=== PATIENT | male | born 2000 | race Caucasian/White ===

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

== ENCOUNTER 2018-02-13 14:11 | Emergency (ER) | payer OTHER ==
[~2018-02-13] VITALS: Ht 188 cm; Wt 140.0 kg
[~2018-02-13 14:11] MED LIST changes: +MELO-83 PO; -MELO15TA4 PO
[2018-02-13 14:29] VITALS: TEMP 36.9; Ht 188 cm; Wt 140.0 kg
--- NOTE | 2018-02-13 15:54 | DIAGNOSTIC IMAGING REPORT ---
L KNEE 3 VIEWS CLINICAL HISTORY: Left knee pain. COMPARISON: None FINDINGS: Alignment of the left knee is anatomic. There is no acute fracture. There is a suspected small left knee joint effusion. Irregularity/fragmentation of the tibial tubercle with a few calcific densities projecting over the distal patellar tendon is noted. IMPRESSION: 1. No acute fracture. 2. Small left knee joint effusion. 3. Irregularity/fragmentation of the tibial tubercle with a few calcific densities projecting over the distal patellar tendon. 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 Electronically signed by: Jeramy Manzano M.D. 02/13/2018 3:52 PM Dictated Date/Time: 02/13/2018 3:50 PM
--- NOTE | 2018-02-13 17:01 | DIAGNOSTIC IMAGING REPORT ---
L LOWER EXTREMITY WITHOUT CLINICAL HISTORY: Left knee pain status post fall 2 weeks ago. COMPARISON STUDY: Left knee radiographs performed earlier today. TECHNIQUE: Axial images of the left knee were obtained without IV contrast. Sagittal and coronal reconstructions were viewed. FINDINGS: No acute fracture or joint effusion of the left knee is noted. There is moderate lateral patellar tilt. There is slight irregularity of the inferior medial cortex of the patella without convincing evidence for recent lateral patellar dislocation by CT. Fragmentation of the tibial tubercle with several calcifications in the distal patellar tendon are noted. These are corticated and chronic. No suspicious osseous lesion is present. Joint spaces are preserved. There may be minimal osteophytosis within the patellofemoral compartment. Intrinsic ligaments of the left knee and menisci are suboptimally assessed by CT. IMPRESSION: 1. No acute fracture or joint effusion of the left knee. 2. Moderate lateral patellar tilt without convincing CT evidence for recent lateral patellar subluxation. 3. 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 Electronically signed by: Jeramy Manzano M.D. 02/13/2018 5:00 PM Dictated Date/Time: 02/13/2018 4:33 PM
--- NOTE | 2018-02-13 17:09 | EMERGENCY ROOM VISIT NOTE ---
History First contact with patient: 14:34 Chief Complaint: KNEEPAIN Stated Complaint: LEFT KNEE PAIN History of Present Illness The patient is a 18 year old male who presents to the Emergency Room with complaints of left knee pain after falling in a freezer at work approximately 1 week ago. The patient reports that his pain is progressively worsening. He denies any instability, clicking or locking of the knee. He denies any pain extending into the thigh or distal leg region. He denies any paresthesias or numbness of the left lower extremity, and rates his discomfort an 8 out of 10 with weightbearing. Patient reports that he has had a prior history of joint problems, and his PCP has prescribed meloxicam for his pain. The patient reports that the meloxicam is not helping with his discomfort. Review of Systems 10 system review was performed and was negative except for pertinent positives and negatives as indicated in history of present illness Past Medical/Surgical History Medical Problems: (1) ADHD (attention deficit hyperactivity disorder) (2) No known active medical problems Family History Cancer Diabetes mellitus Heart disease Social History Smoking Status: Current Every Day Smoker Alcohol Use: none Drug Use: none Marital Status: single Housing Status: lives with family Occupation Status: student Current/Historical Medications Scheduled Meloxicam (Meloxicam), 15 MG PO DAILY Physical Exam Vital Signs Date Time Temp Pulse Resp B/P (MAP) Pulse Ox O2 Delivery O2 Flow Rate FiO2 02/13/18 14:29 36.9 76 20 124/83 99 Room Air Physical Exam CONSTITUTIONAL: Healthy and well nourished. Alert and oriented X 3 with positive affect. HEENT: Normocephalic, atraumatic. Pupils equal, round and reactive. NECK: Full active range of motion without discomfort. MUSCULOSKELETAL: Examination of the left knee does not show any obvious soft tissue edema, ecchymosis, erythema, abrasions or lacerations. The patient is tender over the tibial tubercle and patellar tendon region. He is able to extend the knee against resistance. Patient is also able to straight leg raise. Collateral ligaments are intact. Negative anterior drawer, negative posterior draw. No obvious joint effusion noted. Pedal pulses are intact. INTEGUMENTARY: No rash or other significant dermatologic conditions noted. NEUROLOGIC: Left lower extremity is sensory intact. Medical Decision & Procedures ER Provider Diagnostic Interpretation: My interpretation of left knee x-rays shows possible fragmentation at the tibial tubercle. No obvious extension into the proximal tibia or tibial plateau is noted. 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 Radiologist report is as follows: L KNEE 3 VIEWS CLINICAL HISTORY: Left knee pain. COMPARISON: None FINDINGS: Alignment of the left knee is anatomic. There is no acute fracture. There is a suspected small left knee joint effusion. Irregularity/fragmentation of the tibial tubercle with a few calcific densities projecting over the distal patellar tendon is noted. IMPRESSION: 1. No acute fracture. 2. Small left knee joint effusion. 3. Irregularity/fragmentation of the tibial tubercle with a few calcific densities projecting over the distal patellar tendon. This is chronic and may reflect the sequela of [place] Schlatter disease. Noncontrast CT of the knee does not show any fracture extending into the proximal tibia. Radiologist report is as follows: L LOWER EXTREMITY WITHOUT CLINICAL HISTORY: Left knee pain status post fall 2 weeks ago. COMPARISON STUDY: Left knee radiographs performed earlier today. TECHNIQUE: Axial images of the left knee were obtained without IV contrast. Sagittal and coronal reconstructions were viewed. FINDINGS: No acute fracture or joint effusion of the left knee is noted. There is moderate lateral patellar tilt. There is slight irregularity of the inferior medial cortex of the patella without convincing evidence for recent lateral patellar dislocation by CT. Fragmentation of the tibial tubercle with several calcifications in the distal patellar tendon are noted. These are corticated and chronic. No suspicious osseous lesion is present. Joint spaces are preserved. There may be minimal osteophytosis within the patellofemoral compartment. Intrinsic ligaments of the left knee and menisci are suboptimally assessed by CT. IMPRESSION: 1. No acute fracture or joint effusion of the left knee. 2. Moderate lateral patellar tilt without convincing CT evidence for recent lateral patellar subluxation. 3. 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 ED Course Patient history and physical exam were performed. Nurse's notes were reviewed. Vital signs were reviewed and were normal. 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 Because the patient has not had any improvement over the past 2 weeks since his injury, I elected to perform a CT of the knee which did not show any proximal tibia fracture. A knee immobilizer and crutches were applied. The patient was encouraged to intermittently apply ice and elevate the knee for swelling and pain. Alternate ibuprofen and Tylenol as needed for pain. The patient was instructed to discuss this injury with his employer as the patient reports that he fell at work. He does not think that any paperwork was filed. If this is not considered as a Worker's Compensation injury, the patient was instructed to follow-up with [facility] for further reevaluation and management. The patient was happy with plan of care, voiced understanding of all discharge instructions, and rated his discomfort a 4 out of 10 at the conclusion of my exam. Medical Decision Medication Reconcilliation Current Medication List: was personally reviewed by me Blood Pressure Screening Patient's blood pressure: Normal blood pressure Impression Primary Impression: Left knee injury Departure Information Referrals Brendan Orourke MD (PCP) Patient Instructions My [facility] Problem Qualifiers Primary Impression: Left knee injury Encounter type: initial encounter Qualified Codes: S89.92XA - Unspecified injury of left lower leg, initial encounter
[2018-02-13 17:26] VITALS: BP 121/78; PULSE 81; O2SAT 99
== END 2018-02-13 17:29 | disposition home or self-care (01) ==
LOC: C.EDB 14:15 → C.EDD 17:29
DX: S89.92XA Unspecified injury of left lower leg, initial encounter (principal); W19.XXXA Unspecified fall, initial encounter; F90.9 Attention-deficit hyperactivity disorder, unspecified type; Z83.3 Family history of diabetes mellitus; Z82.49 Family history of ischemic heart disease and other diseases of the circulatory system; F17.200 Nicotine dependence, unspecified, uncomplicated; Y99.0 Civilian activity done for income or pay